=== PATIENT | male | born 1985 | race Caucasian/White ===

== ENCOUNTER 2017-02-20 07:01 | Emergency (ER) | payer OTHER ==
[~2017-02-20] VITALS: Ht 182.9 cm; Wt 77.3 kg
[~2017-02-20 07:01] MED LIST: CLIN-78 PO
[2017-02-20 07:05] VITALS: BP 145/89; PULSE 101; RESP 12; O2SAT 99
--- NOTE | 2017-02-20 07:11 | ED.REPORT ---
HPI-General Illness Date of Service Feb 20, 2017 ED Provider: The patient is a 31 year old male with history of IV heroin and methamphetamine abuse, and hepatitis C, who presents to the emergency department complaining of withdrawal symptoms. He has not used meth or heroin in 2 days due to financial issues. He has been injecting meth and heroin for about 7 years. He does not use meth without heroin. He was previously on Suboxone for a few days. He would like help with getting off the drugs. He denies any abscesses or skin infections. Nursing Notes Stated Complaint: HEROIN WITHDRAWLS Chief Complaint: Substance Abuse Nursing Notes Reviewed: Yes Allergies: Coded Allergies: No Known Allergies (Verified Allergy, Unknown, 03/08/16) Scheduled Clindamycin (Clindamycin) 300 Mg Capsule 300 MG PO QID General Time Seen by MD: 07:10 Chief Complaint Other (withdrawal) Hx Obtained From: Patient Arrived By: Walk-in Sudden in Onset?: Yes Onset Occurred: 2 days ago Symptom Duration: Since onset Severity: Current: Moderate Severity: Maximum: Severe Recent Healthcare: No recent doctor visit, No recent hospitalization Similar Sx Previous: Yes Past Medical History Past Medical History IV heroin and methamphetamine abuse Hepatitis C Hx sepsis Past Surgical History None Family History Noncontributory Smoking History Current Every Day Smoker Social History Alcohol Use: "Social" Drug Use: IV drugs, Meth, Other Other Social History: Good social support, Local resident, Homeless Ambulatory Status Independent Review of Systems +withdrawal symptoms Full Review of Systems Constitutional: Denies: Fever Musculoskeletal: Denies: Extremity pain, Extremity swelling Skin: Denies Rash, Denies Swelling Complete sys rev & neg: except as marked. Physical Exam Vital Signs Vital Signs Date Time Temp Pulse Resp B/P Pulse Ox O2 Delivery O2 Flow Rate FiO2 02/20/17 07:05 35.8 101 12 145/89 99 Room Air Initial VS: Reviewed Head / Eyes: Atraumatic, Normocephalic, PERRL ENT: Mucous membranes moist, Conjunctiva normal, No scleral icterus Neck: Supple, Non-tender, Full range of motion Respiratory: Breath sounds normal, Clear to auscultation, No respiratory distress Cardiovascular: Regular rate & rhythm, Heart sounds normal, Intact distal pulses Abdomen / GI: Soft, Non-tender, No guarding, No rebound, No distention Lymphatic: No lymphadenopathy Extremities: Vascular intact, Neuro intact, No swelling, No tenderness Skin: Warm, Dry, No cyanosis Neurologic: Alert, Oriented, Nonfocal Psychiatric: Mood/affect normal, Behavior normal, Normal thought content General/Constitutional: Awake, Alert, No acute distress, Cooperative Interpretation & Diagnostics Lab Results Interpretation Test 02/20/17 08:18 Hold Urine Received (Received) Re-Eval/Medical Decision Source of Hx: Old records Time of Eval: 09:39 Re-Evaluation/Progress Note: The patient feels much better. Time of Eval: 09:47 Re-Evaluation/Progress Note: Rechecked the patient. Discussed plan for discharge. All questions were addressed. He will screen with crisis [facility] prior to discharge. Counseled Regarding: Diagnosis, Need for follow-up, When/why to return to ED Discharge & Departure Primary Impression: Opiate use Disposition: Home Discharge Condition All VS Reviewed: Yes Condition: Stable Patient Instructions: Narcotic Abuse (ED) Additional Instructions: Thank you for entrusting us with your care today. Unfortunately the crisis center is full at this time. You can call them every 12 hours to see if a bed is available. I have written you a prescription for Suboxone for the next few days. Take the 8 mg once daily as prescribed. Make sure to hold the medication under your tongue until it is completely dissolved. You will need to followup at [facility] to continue the Suboxone treatment. Call today using the number on the card to schedule an appointment for early next week. It is important that you have some kind of identification for your appointment. It is also important that you do not use heroin or meth while taking the Suboxone. Seek care for any new or concerning symptoms. Referrals: [facility] Scribe Attestation Portions of this note were transcribed by Lucia Hurtado. I, Dr. López personally performed the history, physical exam and medical decision-making; I reviewed and confirmed the accuracy of the information in the transcribed note. Signed by: Xuan Cleveland, 02/20/2017 at 1015. Salvatore López MD Feb 20, 2017 07:11 Lucia Hurtado Feb 20, 2017 07:15
[2017-02-20] MEDS ORDERED: Buprenorphine 2 mg SL Tablet SL ONE (07:15)
[2017-02-20] MEDS ORDERED: BUPR1FIL3 SL (10:02)
== END 2017-02-20 10:13 | disposition home or self-care (01) ==
LOC: SED 07:01
DX: F11.23 Opioid dependence with withdrawal (principal); F15.20 Other stimulant dependence, uncomplicated; F17.200 Nicotine dependence, unspecified, uncomplicated; Z86.19 Personal history of other infectious and parasitic diseases; Z59.0 Homelessness